=== PATIENT | male | born 1950 | race Caucasian/White ===

== ENCOUNTER → 2020-07-16 14:46 | Outpatient (BNVA) | payer MEDICARE, SELFPAY | PROVIDERS: PCP Family Medicine; Visit Provider Surgery | DX: T81.89XA Other complications of procedures, not elsewhere classified, initial encounter (principal) | CPT/HCPCS: 99202 ==

== ENCOUNTER → 2020-09-02 11:32 | Outpatient (BNVA) | payer MEDICARE, SELFPAY | PROVIDERS: PCP Family Medicine; Visit Provider Surgery | DX: T81.89XD Other complications of procedures, not elsewhere classified, subsequent encounter (principal) | CPT/HCPCS: 99212 ==

== ENCOUNTER → 2020-10-01 11:21 | Outpatient (BNVA) | payer MEDICARE, SELFPAY | PROVIDERS: PCP Family Medicine; Visit Provider Surgery | DX: Z48.817 Encounter for surgical aftercare following surgery on the skin and subcutaneous tissue (principal); Z87.2 Personal history of diseases of the skin and subcutaneous tissue | CPT/HCPCS: 99212 ==

== ENCOUNTER → 2021-01-04 11:24 | Outpatient (BNVA) | payer MEDICARE, SELFPAY | PROVIDERS: PCP Family Medicine; Visit Provider Surgery | DX: S31.000A Unspecified open wound of lower back and pelvis without penetration into retroperitoneum, initial encounter (principal) | CPT/HCPCS: 99212 ==

== ENCOUNTER 2021-04-02 12:45 | Outpatient (RCR) | payer MEDICARE, SELFPAY ==
--- NOTE | ~2021-04-02 | XR_ITS ---
EXAMINATION: XR SACRUM AND COCCYX CLINICAL INFORMATION: Coccyx wound. Rule out osteo-. COMPARISON: Pelvic MRI of November 14, 2018 TECHNIQUE: 2 views of the sacrum and 2 views of the coccyx were obtained. FINDINGS: There is some irregularity with appearance of penciling of the coccyx as well as what appears to be a lucent region or area of bony destruction just inferior to the region of bone tapering however there appears to be a similar appearance on MRI of November 14, 2018 and whether there is an acute component of disease at this time I cannot say on plain film study and MRI would be of help in better evaluation. There is noted to be some gas within the soft tissues which may be related to decubitus ulcer. This severe degenerative disc disease at the L5-S1 level is evident. There is some degenerative sclerosis about the inferior third of the right sacroiliac joint. XR/XR sacrum coccyx min 2V IMPRESSION: Gas within the soft tissues about the coccyx and sacrum likely related to decubitus ulcer. Appearance of the coccyx as described which may be related to acute on chronic osteomyelitis and MRI would be of better evaluation of this finding than plain film study.
--- NOTE | ~2021-04-02 | XR_ITS ---
EXAMINATION: XR CHEST CLINICAL INFORMATION: Prehyperbaric oxygen chamber treatment COMPARISON: None TECHNIQUE: 2 views of the chest were obtained. FINDINGS: The cardiac and mediastinal contours are normal. There is question of a right upper lobe nodule measuring approximately 1 x 1.5 cm versus overlapping bone structures related to the right anterior first rib and posterior third ribs. The lungs are otherwise clear. There is no pleural effusion or pneumothorax. There are mild degenerative changes of the spine. XR/XR chest 2V IMPRESSION: Question right upper lobe nodule versus overlapping bony structures. Follow-up apical lordotic view of the chest or chest CT recommended.
== END 2021-09-21 15:42 | disposition home or self-care (01) ==
LOC: HO.WCC 12:45
PROVIDERS: Visit Provider Physician Assistant
DX: E11.622 Type 2 diabetes mellitus with other skin ulcer (principal); L89.154 Pressure ulcer of sacral region, stage 4; E11.69 Type 2 diabetes mellitus with other specified complication; M86.39 Chronic multifocal osteomyelitis, multiple sites; J44.9 Chronic obstructive pulmonary disease, unspecified; F17.210 Nicotine dependence, cigarettes, uncomplicated; F11.20 Opioid dependence, uncomplicated; F12.90 Cannabis use, unspecified, uncomplicated
CPT/HCPCS: 11042; 71046; 72220; 99212; 99213

== ENCOUNTER 2021-05-05 11:00 | Outpatient (REF) | payer MEDICARE, SELFPAY ==
[2021-05-05 12:09] LABS: MANUAL DIFF FLAG NO
[2021-05-05 13:01] LABS: Basophils Absolute Auto 0.1 X10*3/uL (0.0-0.2); Eosinophils Absolute Auto 0.2 X10*3/uL (0.0-0.4); Eosinophils Percent Auto 3.7 % (0-4); Hematocrit 28.3 % (42-52); Hemoglobin 8.6 g/dl (14.0-18.0); Imm Gran Abs Auto 0.01 X10*3/uL (0.00-0.03); Imm Gran Pct Auto 0.2 % (0.0-0.4); Lymphocytes Absolute Auto 1.3 X10*3/uL (1.2-4.9); Mean Corpuscular HGB Conc 30.4 g/dl (31.0-36.0); Mean Corpuscular Hemoglobin 29.6 pg (27.0-33.0); Mean Corpuscular Volume 97.3 fL (80-98); Mean Platelet Volume 11.9 fL (9.4-12.4); Monocytes Absolute Auto 0.4 X10*3/uL (0.1-1.2); Monocytes Percent Auto 8.7 % (2-11); Neutrophils Absolute Auto 2.9 X10*3/uL (2.0-8.3); Neutrophils Percent Auto 60.4 % (45-73); Platelet Count 200 X10*3/uL (160-400); Red Blood Count 2.91 X10*6/uL (4.60-5.80); Red Cell Distribution Width 14.8 % (11.0-16.0); White Blood Count 4.8 X10*3/uL (4.8-10.8)
[2021-05-05 13:57] LABS: Erythrocyte Sedimentation Rate 18 MM/HR (0-15)
== END 2021-05-05 11:01 | disposition home or self-care (01) ==
LOC: HO.LAB 11:00
PROVIDERS: Visit Provider Internal Medicine
DX: M86.9 Osteomyelitis, unspecified (principal)
CPT/HCPCS: 36415; 80048; 80076; 85025; 85652; 86140; 99202

== ENCOUNTER 2021-05-10 11:14 | Outpatient (REF) | payer MEDICARE, SELFPAY ==
[2021-05-10 12:35] LABS: Alanine Aminotransferase 8 U/L (0-40); Albumin Level 2.7 g/dL (3.5-5.0); Alkaline Phosphatase 93 U/L (39-117); Anion Gap 11 (12-20); Aspartate Amino Transferase 18 U/L (5-37); Bilirubin Direct < 0.2 mg/dL (0.0-0.5); Bilirubin Total 0.3 mg/dL (0.0-1.0); Blood Urea Nitrogen 17 mg/dL (9-16); Calcium 7.8 mg/dL (8.4-10.2); Carbon Dioxide 22 mmol/L (22-29); Chloride 113 mmol/L (96-108); Estimated Glomerular Filt Rate 49; Glucose Random 174 mg/dL (60-115); Potassium 4.7 mmol/L (3.3-5.1); Sodium 141 mmol/L (135-145); Total Protein 5.9 g/dL (6.5-8.0)
== END 2021-05-10 11:15 | disposition home or self-care (01) ==
LOC: HO.LAB 11:14
PROVIDERS: Visit Provider Internal Medicine
DX: M86.9 Osteomyelitis, unspecified (principal)
CPT/HCPCS: 36415; 80048; 80076; 86140

== ENCOUNTER 2021-05-31 12:56 | Outpatient (REF) | payer MEDICARE, SELFPAY ==
--- NOTE | ~2021-05-31 | MR_ITS ---
EXAMINATION: MR PELVIS WITHOUT AND WITH CONTRAST CLINICAL INFORMATION: Rule out osteomyelitis. Nonhealing wound over the sacrum and coccyx. Pain. COMPARISON: Previous x-ray 04/16/2021 and MR pelvis November 2018 TECHNIQUE: Sagittal axial and coronal sequences through the pelvis were performed with and without contrast. Patient received 7 Gadavist contrast. FINDINGS: There is abnormal signal seen in the distal sacrum and coccyx. This is low signal on T1, high signal on T2-weighted sequences and demonstrates enhancement. Appearance is suggestive of osteomyelitis. There is abnormal heterogeneous signal in the soft tissues overlying the distal sacrum and coccyx. This demonstrates enhancement and contains foci of low signal probably representing air. A focal fluid collection in the overlying soft tissues is not seen. There is degenerative disc disease of the lower lumbar spine and mild scoliosis. Bones of the pelvis are otherwise unremarkable. The hip joints are unremarkable. There is a large amount of stool in the colon suggestive of constipation. Bladder is unremarkable. The prostate gland does not appear enlarged. No ascites or enlarged lymph nodes are seen. No hernia is seen. MR/MR pelvis wo/w con IMPRESSION: Abnormal signal and enhancement of the distal sacrum and coccyx suggestive of osteomyelitis.
== END 2021-05-31 12:57 | disposition home or self-care (01) ==
LOC: HO.MRI 12:56
PROVIDERS: Visit Provider Physician Assistant
DX: E11.622 Type 2 diabetes mellitus with other skin ulcer (principal); L98.492 Non-pressure chronic ulcer of skin of other sites with fat layer exposed; L08.9 Local infection of the skin and subcutaneous tissue, unspecified
CPT/HCPCS: 72197; A9585

== ENCOUNTER → 2021-06-02 11:34 | Outpatient (BNVA) | payer MEDICARE, SELFPAY | PROVIDERS: Visit Provider Internal Medicine | DX: M86.9 Osteomyelitis, unspecified (principal) | CPT/HCPCS: 99212 ==